=== PATIENT | female | born 1995 | race Caucasian/White ===

== ENCOUNTER 2017-06-05 12:50 | Outpatient (CLI) | payer OTHER ==
[~2017-06-05] VITALS: Ht 172.7 cm; Wt 97.8 kg
[~2017-06-05 12:50] MED LIST: PREN-39 PO
[2017-06-05 13:00] VITALS: BP 126/73; PULSE 83; RESP 20; Ht 172.7 cm; Wt 97.8 kg
--- NOTE | 2017-06-05 14:04 | PN ---
Triage Information Date/Time Reason for visit: Uterine contractions Weeks of Gestation 39 WEEKS 2/7 /Para Diabetes: none Hypertention: none Objective Vital Signs Date Time Temp Pulse Resp B/P Pulse Ox O2 Delivery O2 Flow Rate FiO2 06/05/17 13:00 97.0 83 20 126/73 Room Air Heart Rate: 130's Contractions: >10 Minutes Apart Exam cx long closed vtx -2 Results/Medications Imaging Results pending Disposition: Discharge Assessment/Plan if bpp normal may go home ,fallow with clinic ,rerun to hospital when in active labor FRIEDA COOPER MD Jun 05, 2017 14:04
--- NOTE | 2017-06-05 14:42 | RADRPT ---
PROCEDURE: US OB biophysical profile. CLINICAL INDICATION: evaluation, contractions TECHNIQUE: Multiple sonographic images of the pelvis were obtained. The images were reviewed on a PACS workstation. COMPARISON: No prior studies are available for comparison. FINDINGS: There is a single viable intrauterine gestation. Cardiac activity is present with 134 beats per min solomon. There is a vertex presentation. The placenta is anterior. There is no evidence of placental abruption. There is a normal amount of amniotic fluid with an DANIA = 14.9 cm. Biophysical profile: movement 2/2 tone 2/2. breathing 2/2 DANIA 2/2 Total 04/08 RPTAT: AA . IMPRESSION: Normal biophysical profile. Physician Gavin Date Time Electronically viewed and signed by Physician Gavin on 06/05/2017 14:42 /
--- NOTE | 2017-06-05 15:34 | TRIAGE ---
OB Triage Datetime Report Generated by CPN: 06/05/2017 15:33 Datetime: 06/05/2017 14:44 Labor Evaluation Frequency: 5-10 Monitor Mode: External Duration (sec)2399: 20-30 Quality: Mild Resting Tone [employer]: Relaxed Heart Rate FHR Baseline Rate: 135 Monitor Mode: External US Variability: Moderate 6-25 bpm Accelerations: 15X15 Decelerations: None Category: Category I Pain Assessment Pain Scale: 5 Pain Presence: Intermittent Pain Type: Cramping Pain Location: Abdomen Pain Goal: 5 Pain Relief Measures: Comfort Measures Vaginal Exam Dilatation (cms): 0.0 Effacement (%): 30 Station: -3 Exam By: leah franklin rn Membrane Status: Intact Vaginal Bleeding: None Cervix, Consistency: Firm Cervix, Position: Posterior Presentation 'A': Cephalic Datetime: 06/05/2017 13:30 Comments: called dr aragon, orders received, bpp, doris, force fluids, pt given water, told of plan Datetime: 06/05/2017 13:16 Stage of : OB Triage Assessment Type: Triage Maternal Assessment Level of Consciousness: Fully Conscious DTR's/Clonus: DTRs 2+; No Clonus Headache: Denies Blurred Vision: No Respiratory Effort: Unlabored; Regular Rhythm; Equal Expansion Breath Sounds, Left: Clear and Equal Breath Sounds, Right: Clear and Equal Nausea/Vomiting: Denies RUQ Epigastric Pain: Denies Lower Extremities Edema: None Upper Extremities Edema: None Facial Edema: None Temperature Route: Oral Fall Risk Assessment History of Falling: (0) No Secondary Diagnosis: (0) No Ambulatory Aid: (0) Bedrest/Nurse Assist IV Therapy: (0) No Gait: (0) Normal/Bedrest/Immobile Mental Status: (0) Oriented to Own Ability Fall Score: 0 Fall Risk Score Definition: No Risk: No action required Monitor Mode: External Resting Tone [employer]: Relaxed Heart Rate FHR Baseline Rate: 145 Monitor Mode: External US Variability: Moderate 6-25 bpm Pain Assessment Pain Scale: 7 Pain Presence: Intermittent Pain Type: Contraction Pain Location: Abdomen Pain Goal: 3 Pain Relief Measures: Comfort Measures Vaginal Exam Dilatation (cms): 0.0 Effacement (%): 20 Station: -3 Exam By: leah franklin rn Membrane Status: Intact Datetime: 06/05/2017 13:12 EGA: 39.2 Datetime: 06/05/2017 13:11 Time of Arrival: 06/05/2017 12:46 Arrived By: Ambulatory Arrived From: Home Chief Complaint: uc's Movement: Present Contractions: Irregular Contractions: "7-12" Rupture of Membranes: Denies Vaginal Bleeding: None Vaginal Discharge: Present Recent Sexual Intercouse: Denies Abdominal Trauma: Not Applicable Patient Complaints: Contractions Provider Notified: mahesh Initial Plan: nst, v/e, call dr, view
== END 2017-06-05 15:10 | disposition home or self-care (01) ==
LOC: OBT 12:50 → L-D 12:52 → OBT 15:10
PROVIDERS: ATTEND Obstetrics & Gynecology
DX: O62.9 Abnormality of forces of labor, unspecified (principal); Z3A.39 39 weeks gestation of pregnancy
CPT/HCPCS: 76818; Z7500; G0463

== ENCOUNTER 2017-06-05 18:09 | Inpatient (IN) | END 2017-06-07 15:45 | disposition home or self-care (01) | DRG 775 | DX: O80 Encounter for full-term uncomplicated delivery (principal); Z37.0 Single live birth; Z3A.39 39 weeks gestation of pregnancy; Z23 Encounter for immunization ==

== ENCOUNTER 2019-05-13 12:44 | Outpatient (CLI) | payer OTHER ==
[~2019-05-13] VITALS: Ht 172.7 cm; Wt 95.1 kg
[~2019-05-13 12:44] MED LIST changes: +CEPH-443 PO
[2019-05-13 12:58] VITALS: Ht 172.7 cm; Wt 95.1 kg
[2019-05-13 12:59] VITALS: BP 113/59; PULSE 78; RESP 18
[2019-05-13] MEDS ORDERED: AMPICILLIN 2 GM/NS (PMX) 100 ML IV ONE (13:30)
[2019-05-13] MEDS ORDERED: NIFEdipine 10 MG CAP PO ONE (13:30)
[2019-05-13] MEDS ORDERED: BETAMET NA PHOS/AC (6 MG/ML) 2 ML INJ SYG IM SCH (14:30)
[2019-05-13] MEDS ORDERED: LACTATED RINGER'S 1,000 ML IV SCH (15:07)
[2019-05-13] MEDS ORDERED: AMPICILLIN 1 GM/NS (PMX) 50 ML IV SCH (17:30)
== END 2019-05-13 17:22 | disposition home or self-care (01) ==
LOC: OBT 12:44 → L-D 12:45 → OBT 17:22
PROVIDERS: ATTEND Specialist
DX: O62.9 Abnormality of forces of labor, unspecified (principal); O30.043 Twin pregnancy, dichorionic/diamniotic, third trimester; Z3A.32 32 weeks gestation of pregnancy
CPT/HCPCS: 76817; 81001; 87081; 87086; 96360; 96361; 96372; J0290; J0702; J7120; Z7500; Z7610; G0463

== ENCOUNTER 2019-05-14 14:56 | Outpatient (CLI) | payer OTHER ==
[~2019-05-14] VITALS: Ht 172.7 cm; Wt 95.7 kg
[2019-05-14] MEDS ORDERED: BETAMET NA PHOS/AC (6 MG/ML) 2 ML INJ SYG IM ONE (17:00)
[2019-05-14 17:02] VITALS: Ht 172.7 cm; Wt 95.7 kg
[2019-05-14 17:03] VITALS: BP 113/63; PULSE 88; RESP 18
== END 2019-05-14 18:55 | disposition home or self-care (01) ==
LOC: OBT 14:56 → L-D 14:57 → OBT 18:55
PROVIDERS: ATTEND Specialist
DX: O30.003 Twin pregnancy, unspecified number of placenta and unspecified number of amniotic sacs, third trimester (principal); Z3A.32 32 weeks gestation of pregnancy
CPT/HCPCS: J0702; Z7500; G0463